=== PATIENT | male | born 1965 | race Caucasian/White ===

== ENCOUNTER 2019-04-07 16:03 | Inpatient (IN) | payer BC ==
[~2019-04-07] VITALS: Ht 203.2 cm; Wt 127.1 kg
[2019-04-07] MEDS ORDERED: IV NORMAL SALINE 1000ML BAG 1,000 ML IV SCH (17:51)
--- NOTE | 2019-04-07 18:01 | PHYS DOC ---
Past Medical History Past Medical History: A-Fib, GERD, Other Additional Past Medical Histor: avascular necrosis, heart murmur as ped (TRINITY KUMAR APRN) Past Surgical History: Tonsillectomy, Other Additional Past Surgical Histo: back, left wrist (TRINITY KUMAR APRN) Alcohol Use: Occasionally Drug Use: None (TRINITY KUMAR APRN) Attending Signature I have participated in the care of this patient and I have reviewed and agree with all pertinent clinical information above including history, exam, and recommendations. (FRENCH MCCANN MD) Adult General Chief Complaint Chief Complaint: DIZZY/LIGHT HEADED HPI HPI Patient is a 53 year old male who presents with states this morning he began having dizziness. He states he feels like the room is spinning and he states that he just doesn't feel right and he states typically all over his body. Patient CT has been up and walking. Patient has a history of A. fib and GERD. Patient is on Xeralto and Sotalol. Patient's electronics specialist today in [place] and does not see him again until May. (TRINITY KUMAR APRN) Review of Systems Review of Systems Neurologic: Dizziness and generalized tingling. Denies headache, focal weakness or sensory changes [] All other systems were reviewed and found to be within normal limits, except as documented in this note. (TRINITY KUMAR APRN) Current Medications Current Medications Current Medications Medications (Trade) Dose Ordered Sig/Lindsey Start Time Stop Time Status Last Admin Dose Admin Diltiazem HCl (Cardizem Iv Push) 10 mg 1X ONCE 04/07/19 19:15 04/07/19 19:16 DC 04/07/19 18:56 10 MG Meclizine HCl (Antivert) 25 mg 1X ONCE 04/07/19 18:45 04/07/19 18:46 DC 04/07/19 18:35 25 MG Sodium Chloride 1,000 ml @ 1,000 mls/hr Q1H 04/07/19 17:51 04/07/19 18:50 DC 04/07/19 18:36 1,000 MLS/HR (FRENCH MCCANN MD) Allergies Allergies Allergies Coded Allergies Type Severity Reaction Last Updated Verified No Known Drug Allergies 04/07/19 No (FRENCH MCCANN MD) Physical Exam Physical Exam Constitutional: Well developed, well nourished, no acute distress, non-toxic appearance. [] HENT: Normocephalic, atraumatic, bilateral external ears normal, oropharynx moist, no oral exudates, nose normal. [] Eyes: PERRLA, EOMI, conjunctiva normal, no discharge. [] Neck: Normal range of motion, no tenderness, supple, no stridor. [] Cardiovascular:Heart rate A. fib rhythm, no murmur [] Lungs & Thorax: Bilateral breath sounds clear to auscultation [] Skin: Warm, dry, no erythema, no rash. [] Extremities: No tenderness, no cyanosis, no clubbing, ROM intact, bilateral lower extremities 2+ edema. [] Neurologic: Alert and oriented X 3, normal motor function, normal sensory function, no focal deficits noted. [] Psychologic: Affect normal, judgement normal, mood normal. [] (TRINITY KUMAR APRN) Current Patient Data Vital Signs Vital Signs Date Time Temp Pulse Resp B/P (MAP) Pulse Ox O2 Delivery O2 Flow Rate FiO2 04/07/19 20:00 124 18 98 04/07/19 18:56 138/90 04/07/19 17:27 97.8 Room Air 97.8 (FRENCH MCCANN MD) Lab Values Laboratory Tests Test 04/07/19 18:14 White Blood Count 8.3 x10^3/uL (4.0-11.0) Red Blood Count 4.56 x10^6/uL (4.30-5.70) Hemoglobin 14.1 g/dL (13.0-17.5) Hematocrit 42.2 % (39.0-53.0) Mean Corpuscular Volume 93 fL (79-100) Mean Corpuscular Hemoglobin 31 pg (25-35) Mean Corpuscular Hemoglobin Concent 34 g/dL (31-37) Red Cell Distribution Width 14.7 % (11.5-14.5) H Platelet Count 231 x10^3/uL (140-400) Neutrophils (%) (Auto) 57 % (31-73) Lymphocytes (%) (Auto) 29 % (24-48) Monocytes (%) (Auto) 9 % (0-9) Eosinophils (%) (Auto) 4 % (0-3) H Basophils (%) (Auto) 1 % (0-3) Neutrophils # (Auto) 4.7 x10^3/uL (1.8-7.7) Lymphocytes # (Auto) 2.4 x10^3/uL (1.0-4.8) Monocytes # (Auto) 0.7 x10^3/uL (0.0-1.1) Eosinophils # (Auto) 0.4 x10^3/uL (0.0-0.7) Basophils # (Auto) 0.1 x10^3/uL (0.0-0.2) Prothrombin Time 13.6 SEC (11.7-14.0) Prothrombin Time INR 1.1 (0.8-1.1) Sodium Level 139 mmol/L (136-145) Potassium Level 4.2 mmol/L (3.5-5.1) Chloride Level 106 mmol/L (98-107) Carbon Dioxide Level 27 mmol/L (21-32) Anion Gap 6 (6-14) Blood Urea Nitrogen 15 mg/dL (8-26) Creatinine 0.9 mg/dL (0.7-1.3) Estimated GFR (Cockcroft-Gault) 88.3 BUN/Creatinine Ratio 17 (6-20) Glucose Level 90 mg/dL (70-99) Calcium Level 10.0 mg/dL (8.5-10.1) Total Bilirubin 0.3 mg/dL (0.2-1.0) Aspartate Amino Transferase (AST) 16 U/L (15-37) Alanine Aminotransferase (ALT) 23 U/L (16-63) Alkaline Phosphatase 94 U/L (46-116) Troponin I Quantitative 0.044 ng/mL (0.000-0.055) Total Protein 7.4 g/dL (6.4-8.2) Albumin 3.9 g/dL (3.4-5.0) Albumin/Globulin Ratio 1.1 (1.0-1.7) Laboratory Tests 04/07/19 18:14 Laboratory Tests 04/07/19 18:14 (FRENCH MCCANN MD) Lab Values Laboratory Tests Test 04/07/19 18:14 White Blood Count 8.3 x10^3/uL (4.0-11.0) Red Blood Count 4.56 x10^6/uL (4.30-5.70) Hemoglobin 14.1 g/dL (13.0-17.5) Hematocrit 42.2 % (39.0-53.0) Mean Corpuscular Volume 93 fL (79-100) Mean Corpuscular Hemoglobin 31 pg (25-35) Mean Corpuscular Hemoglobin Concent 34 g/dL (31-37) Red Cell Distribution Width 14.7 % (11.5-14.5) H Platelet Count 231 x10^3/uL (140-400) Neutrophils (%) (Auto) 57 % (31-73) Lymphocytes (%) (Auto) 29 % (24-48) Monocytes (%) (Auto) 9 % (0-9) Eosinophils (%) (Auto) 4 % (0-3) H Basophils (%) (Auto) 1 % (0-3) Neutrophils # (Auto) 4.7 x10^3/uL (1.8-7.7) Lymphocytes # (Auto) 2.4 x10^3/uL (1.0-4.8) Monocytes # (Auto) 0.7 x10^3/uL (0.0-1.1) Eosinophils # (Auto) 0.4 x10^3/uL (0.0-0.7) Basophils # (Auto) 0.1 x10^3/uL (0.0-0.2) Prothrombin Time 13.6 SEC (11.7-14.0) Prothrombin Time INR 1.1 (0.8-1.1) Sodium Level 139 mmol/L (136-145) Potassium Level 4.2 mmol/L (3.5-5.1) Chloride Level 106 mmol/L (98-107) Carbon Dioxide Level 27 mmol/L (21-32) Anion Gap 6 (6-14) Blood Urea Nitrogen 15 mg/dL (8-26) Creatinine 0.9 mg/dL (0.7-1.3) Estimated GFR (Cockcroft-Gault) 88.3 BUN/Creatinine Ratio 17 (6-20) Glucose Level 90 mg/dL (70-99) Calcium Level 10.0 mg/dL (8.5-10.1) Total Bilirubin 0.3 mg/dL (0.2-1.0) Aspartate Amino Transferase (AST) 16 U/L (15-37) Alanine Aminotransferase (ALT) 23 U/L (16-63) Alkaline Phosphatase 94 U/L (46-116) Troponin I Quantitative 0.044 ng/mL (0.000-0.055) Total Protein 7.4 g/dL (6.4-8.2) Albumin 3.9 g/dL (3.4-5.0) Albumin/Globulin Ratio 1.1 (1.0-1.7) Laboratory Tests 04/07/19 18:14 Laboratory Tests 04/07/19 18:14 (TRINITY KUMAR APRN) EKG EKG #1 Afib, no STEMI, #2 Afib RVR[] Interpretation Time: [address] Mccann, [address] Mccann (TRINITY KUMAR APRN) Radiology/Procedures Radiology/Procedures [] (TRINITY KUMAR APRN) Impressions: [address] [address] IMAGING REPORT Signed PATIENT: JAVI DALY ACCOUNT: [id number] : 1965 LOCATION: ER AGE: 53 SEX: M EXAM STATUS: REG ER ORD. PHYSICIAN: TRINITY KUMAR APRN REASON: dizziness PROCEDURE: CT HEAD WO CONTRAST CT head without contrast PQRS statement: CT scans at this facility use dose reduction including either automated exposure control, iterative reconstructions, and /or weight based radiation dosing via mA and kV modification when appropriate to reduce radiation dose to as low as reasonably achievable. HISTORY: Dizziness. TECHNIQUE: Noncontrast CT imaging of the head with coronal reconstructions was acquired. FINDINGS: No intracranial hemorrhage, mass, hydrocephalus, extra-axial fluid collections or infarction. No acute ischemic change. Imaged orbits, mastoids, paranasal sinuses and bones are unremarkable. IMPRESSION: No acute intracranial CT abnormality. Electronically signed by: Lorraine Malik MD (04/07/2019 6:34 PM) [facility] DICTATED and SIGNED BY: LORRAINE MALIK MD DATE: 04/07/[address] [address] IMAGING REPORT Signed PATIENT: JAVI DALY ACCOUNT: [id number] : 1965 LOCATION: ER AGE: 53 SEX: M EXAM STATUS: REG ER ORD. PHYSICIAN: TRINITY KUMAR APRN REASON: dizziness PROCEDURE: PORTABLE CHEST 1V AP chest x-ray HISTORY: Right chest wall mass. FINDINGS: Slight elevation of the left lateral diaphragm. Heart size normal. Mediastinal silhouette is normal. No pneumothorax, pulmonary opacities or pleural effusions. Mild bilateral apical pleural thickening. Bones are unremarkable. IMPRESSION: No acute process. Electronically signed by: Lorraine Malik MD (04/07/2019 7:22 PM) [facility] DICTATED and SIGNED BY: LORRAINE MALIK MD DATE: 04/07/191921 (TRINITY KUMAR APRN) Course & Med Decision Making Course & Med Decision Making Alert and oriented. Patient states he is able to walk but is difficult due to his dizziness. Patient states nothing makes it worse or better. Patient denies chest pain, shortness of air, focal weaknesses, focal numbness, headache, visual changes, abdominal pain, nausea, vomiting, diarrhea, dysuria. Abdomen is soft and nontender. NIH is negative. Speaks in full clear sentences. Clear to auscultation all lobes. Patient is a previous smoker that quit in 2010. Patient has 2+ lower extremity swelling but is nonpitting. No nystagmus. PERRLA. Skin pink warm and dry. CT head shows no acute findings. Patient heart rhythm is Afib and running between 120-140. I have ordered Cardizem bolus only. After Cardizem bolus patient's heart rate is fluctuating between 110 and 120. I got another EKG and urinalysis A. fib with RVR. I started a Cardizem drip. I have spoken to Dr Cordero for admission. I will consult cardiology. (TRINITY KUMAR APRN) Dragon Disclaimer Dragon Disclaimer This electronic medical record was generated, in whole or in part, using a voice recognition dictation system. (TRINITY KUMAR APRN) Departure Departure Impression: Primary Impression: Atrial fibrillation with RVR Disposition: ADMITTED INPATIENT Admitting Physician: CLAUDIA (TRINITY KUMAR APRN) Condition: STABLE Referrals: UNKNOWN PCP NAME (PCP) TRINITY KUMAR APRN Apr 07, 2019 18:01 FRENCH MCCANN MD Apr 08, 2019 18:49
[2019-04-07 18:25] LABS: BASO # 0.1 x10^3/uL (0.0-0.2); BASO % 1 % (0-3); EOS # 0.4 x10^3/uL (0.0-0.7); EOS % 4 % (0-3); HEMATOCRIT 42.2 % (39.0-53.0); HEMOGLOBIN 14.1 g/dL (13.0-17.5); LYMPH # 2.4 x10^3/uL (1.0-4.8); LYMPH % 29 % (24-48); MEAN CORPUSCULAR HEMOGLOBIN 31 pg (25-35); MEAN CORPUSCULAR HGB CONC 34 g/dL (31-37); MEAN CORPUSCULAR VOLUME 93 fL (79-100); MONO # 0.7 x10^3/uL (0.0-1.1); MONO % 9 % (0-9); NEUT # 4.7 x10^3/uL (1.8-7.7); NEUT % 57 % (31-73); PLATELET COUNT 231 x10^3/uL (140-400); RED BLOOD COUNT 4.56 x10^6/uL (4.30-5.70); RED CELL DISTRIBUTION WIDTH 14.7 % (11.5-14.5); WHITE BLOOD COUNT 8.3 x10^3/uL (4.0-11.0)
[2019-04-07 18:32] LABS: CREATININE 0.9 mg/dL (0.7-1.3); GFR 88.3; POTASSIUM 4.2 mmol/L (3.5-5.1)
[2019-04-07 18:33] LABS: PROTHROMBIN TIME PATIENT 13.6 SEC (11.7-14.0)
--- NOTE | 2019-04-07 18:37 | RAD ---
CT head without contrast PQRS statement: CT scans at this facility use dose reduction including either automated exposure control, iterative reconstructions, and /or weight based radiation dosing via mA and kV modification when appropriate to reduce radiation dose to as low as reasonably achievable. HISTORY: Dizziness. TECHNIQUE: Noncontrast CT imaging of the head with coronal reconstructions was acquired. FINDINGS: No intracranial hemorrhage, mass, hydrocephalus, extra-axial fluid collections or infarction. No acute ischemic change. Imaged orbits, mastoids, paranasal sinuses and bones are unremarkable. IMPRESSION: No acute intracranial CT abnormality. Electronically signed by: Deshawn Malik MD (04/07/2019 6:34 PM) [facility]
[2019-04-07 18:38] LABS: ALBUMIN 3.9 g/dL (3.4-5.0); ALBUMIN/GLOBULIN RATIO 1.1 (1.0-1.7); TOTAL BILIRUBIN 0.3 mg/dL (0.2-1.0); TOTAL PROTEIN 7.4 g/dL (6.4-8.2)
[2019-04-07] MEDS ORDERED: MECLIZINE HCL 12.5 MG TABLET. PO ONE (18:45)
[2019-04-07] MEDS ORDERED: dilTIAZem IV PUSH 25 MG/5 ML VIAL IVP ONE (19:15)
--- NOTE | 2019-04-07 19:25 | RAD ---
AP chest x-ray HISTORY: Right chest wall mass. FINDINGS: Slight elevation of the left lateral diaphragm. Heart size normal. Mediastinal silhouette is normal. No pneumothorax, pulmonary opacities or pleural effusions. Mild bilateral apical pleural thickening. Bones are unremarkable. IMPRESSION: No acute process. Electronically signed by: Deshawn Malik MD (04/07/2019 7:22 PM) [facility]
[2019-04-07] MEDS ORDERED: ONDANSETRON PF 4 MG/2 ML VIAL. IV PRN (20:30)
[2019-04-07] MEDS ORDERED: ACETAMINOPHEN 325 MG TABLET. PO PRN (20:30)
[2019-04-07] MEDS ORDERED: fentaNYL PF VIAL 100 MCG/2 ML VIAL IV PRN (20:30)
[2019-04-07] MEDS ORDERED: dilTIAZem INJ 125 MG in IV DEXTROSE 5% 100ML 100 ML IV ONE (20:30)
[2019-04-07 22:15] VITALS: BP 108/73
[2019-04-07 22:45] VITALS: BP 99/73
[2019-04-07 23:00] VITALS: BP 105/61
[2019-04-07 23:15] VITALS: BP 94/59
[2019-04-07 23:30] VITALS: BP 82/66
[2019-04-07 23:45] VITALS: BP 100/58
[2019-04-08] VITALS (14 sets, daily range): BP systolic 91–118; BP diastolic 45–89
[2019-04-08] MEDS ORDERED: SOTA80TA48 PO (00:26)
[2019-04-08] MEDS ORDERED: APIX5TAB PO (00:26)
[2019-04-08 06:36] LABS: CHOLESTEROL/HDL RATIO 4.6
--- NOTE | 2019-04-08 06:48 | EKG ---
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
--- NOTE | 2019-04-08 06:49 | EKG ---
[facility] [address] [place] [address] Test Date: 2019-04-07 Test Time: 18:33:58 Pat Name: JAVI DALY Department: Room: 210 1 Gender: M Office Director: : 1965 Requested By: TRINITY KUMAR Order Number: [id number] Reading MD: Atul Li MD Measurements Intervals [place] Rate: 121 P: [place]: QRS: 50 QRSD: 100 T: 31 QT: 334 QTc: 477 Interpretive Statements ATRIAL FIBRILLATION WITH CONTROLLED VENTRICULAR RESPONSE Electronically Signed On 04-18-2019 9:43:04 CDT by Atul Li MD
--- NOTE | 2019-04-08 10:00 | EKG ---
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
--- NOTE | 2019-04-08 10:06 | PDOC1 ---
History and Physical Date of Admission Date of Admission DATE: 04/08/19 TIME: 10:06 History of Present Illness History of Present Illness Mr. Jara, is a 53 year old male admit from ER with acute dizziness, weakness. . IN the ER, he felt like the room was spinning and he states that he just doesn't feel right and he states typically all over his body. . Patient has a history of A. fib and GERD. Patient is on Xeralto and Sotalol. Patient's trust advisor today in [place] - never seen outpatient, had been admitted, was cardioverted, meds started within the past month for acute dyspnea, cardiac arrythmia he lives [place] away, would like to est. care here. he works in [employer] at [employer] Past Medical History Past Medical History no meds one month ago Cardiovascular: AFIB Pulmonary: No pertinent hx GI: No pertinent hx Heme/Onc: No pertinent hx Psych: No pertinent hx Family History Family History: Heart Disease Social History Smoke: No ALCOHOL: none Drugs: None Current Problem List Problem List Problems Medical Problems: (1) Atrial fibrillation with RVR Status: Acute Current Medications Current Medications Current Medications Meclizine HCl (Antivert) 25 mg 1X ONCE PO Last administered on 04/07/19at 18:35; Start 04/07/19 at 18:45; Stop 04/07/19 at 18:46; Status DC Sodium Chloride 1,000 ml @ 1,000 mls/hr Q1H IV Last administered on 04/07/19at 18:36; Start 04/07/19 at 17:51; Stop 04/07/19 at 18:50; Status DC Diltiazem HCl (Cardizem Iv Push) 10 mg 1X ONCE IVP Last administered on 03/22 01/07at 18:56; Start 04/07/19 at 19:15; Stop 04/07/19 at 19:16; Status DC Diltiazem HCl 125 mg/Dextrose 125 ml @ 5 mls/hr 1X ONCE IV Last administered on 04/07/19at 20:28; Start 04/07/19 at 20:30; Stop 04/08/19 at 21:29 Ondansetron HCl (Zofran) 4 mg PRN Q8HRS PRN IV NAUSEA/VOMITING; Start 04/07/19 at 20:30; Stop 04/08/19 at 20:29 Fentanyl Citrate (Fentanyl 2ml Vial) 50 mcg PRN Q1HR PRN IV PAIN; Start 04/07/19 at 20:30; Stop 04/08/19 at 20:29 Acetaminophen (Tylenol) 650 mg PRN Q4HRS PRN PO FEVER; Start 04/07/19 at 20:30; Stop 04/08/19 at 20:29 Active Scripts Active Reported Sotalol (Sotalol Hcl) 80 Mg Tablet 80 Mg PO BID Eliquis (Apixaban) 5 Mg Tablet 5 Mg PO BID Allergies Allergies: Coded Allergies: No Known Drug Allergies (Unverified , 04/07/19) ROS General: YES: Fatigue, Malaise PSYCHOLOGICAL ROS: YES: Sleep disturbances Eyes: No Blurry vision, No Decreased vision, No Double vision, No Dry eyes, No Excessive tearing, No Eye Pain, No Itchy Eyes, No Loss of vision, No Photophobia, No Scotomata, No Uses contacts, No Uses glasses, No Other HEENT: No: Heacaches, Visual Changes, Hearing change, Nasal congestion, Nasal discharge, Oral lesions, Sinus pain, Sore Throat, Epistaxis, Sneezing, Snoring, Tinnitus, Vertigo, Vocal changes, Other Respiratory: YES: SOB with excertion; No: Cough, Hemoptysis, Orthopnea, Pleuritic Pain, Shortness of breath, Sputum Changes, Stridor, Tachypnea, Wheezing, Other Cardiovascular: No Chest Pain, No Palpitations, No Orthopnea, No Paroxysmal Noc. Dyspnea, No Edema, No Lt Headedness, No Other Gastrointestinal: No Nausea, No Vomiting, No Abdominal Pain, No Diarrhea, No Co nstipation, No Melena, No Hematochezia, No Other Genitourinary: No Dysuria, No Frequency, No Incontinence, No Hematuria, No Retention, No Discharge, No Urgency, No Pain, No Flank Pain, No Other, No , No , No , No , No , No , No Musculoskeletal: No Gait Disturbance, No Joint Pain, No Joint Stiffness, No Joint Swelling, No Muscle Pain, No Muscular Weakness, No Pain In:, No Swelling In:, No Other Neurological: Yes Dizziness; No Behavorial Changes, No Bowel/Bladder ControlChng, No Confusion, No Gait Disturbance, No Headaches, No Impaired Coord/balance, No Memory Loss, No Numbness/Tingling, No Seizures, No Speech Problems, No Tremors, No Visual Changes, No Weakness, No Other Skin: No Dry Skin, No Eczema, No Hair Changes, No Lumps, No Mole Changes, No Mottling, No Nail Changes, No Pruritus, No Rash, No Skin Lesion Changes, No Other, No Acne Physical Exam General: Alert, Cooperative, No acute distress HEENT: Atraumatic, PERRLA Heart: S1S2, no gallops, no murmurs Abdomen: Normal bowel sounds, Soft Rectal Exam: not examined Extremities: No clubbing, No edema Skin: No breakdown Neuro: Normal speech, Sensation intact, Cranial nerves 3-12 NL Psych/Mental Status: Mental status NL, Mood NL Vitals Vitals Vital Signs Date Time Temp Pulse Resp B/P (MAP) Pulse Ox O2 Delivery O2 Flow Rate FiO2 04/08/19 07:00 98.8 89 18 101/67 (78) 97 Room Air 98.8 Labs Labs Laboratory Tests Test 04/07/19 18:14 04/08/19 01:45 04/08/19 04:30 White Blood Count 8.3 x10^3/uL (4.0-11.0) Red Blood Count 4.56 x10^6/uL (4.30-5.70) Hemoglobin 14.1 g/dL (13.0-17.5) Hematocrit 42.2 % (39.0-53.0) Mean Corpuscular Volume 93 fL (79-100) Mean Corpuscular Hemoglobin 31 pg (25-35) Mean Corpuscular Hemoglobin Concent 34 g/dL (31-37) Red Cell Distribution Width 14.7 % (11.5-14.5) Platelet Count 231 x10^3/uL (140-400) Neutrophils (%) (Auto) 57 % (31-73) Lymphocytes (%) (Auto) 29 % (24-48) Monocytes (%) (Auto) 9 % (0-9) Eosinophils (%) (Auto) 4 % (0-3) Basophils (%) (Auto) 1 % (0-3) Neutrophils # (Auto) 4.7 x10^3/uL (1.8-7.7) Lymphocytes # (Auto) 2.4 x10^3/uL (1.0-4.8) Monocytes # (Auto) 0.7 x10^3/uL (0.0-1.1) Eosinophils # (Auto) 0.4 x10^3/uL (0.0-0.7) Basophils # (Auto) 0.1 x10^3/uL (0.0-0.2) Prothrombin Time 13.6 SEC (11.7-14.0) Prothromb Time International Ratio 1.1 (0.8-1.1) Sodium Level 139 mmol/L (136-145) Potassium Level 4.2 mmol/L (3.5-5.1) Chloride Level 106 mmol/L (98-107) Carbon Dioxide Level 27 mmol/L (21-32) Anion Gap 6 (6-14) Blood Urea Nitrogen 15 mg/dL (8-26) Creatinine 0.9 mg/dL (0.7-1.3) Estimated GFR (Cockcroft-Gault) 88.3 BUN/Creatinine Ratio 17 (6-20) Glucose Level 90 mg/dL (70-99) Calcium Level 10.0 mg/dL (8.5-10.1) Total Bilirubin 0.3 mg/dL (0.2-1.0) Aspartate Amino Transf (AST/SGOT) 16 U/L (15-37) Alanine Aminotransferase (ALT/SGPT) 23 U/L (16-63) Alkaline Phosphatase 94 U/L (46-116) Troponin I Quantitative 0.044 ng/mL (0.000-0.055) 0.055 ng/mL (0.000-0.055) 0.034 ng/mL (0.000-0.055) Total Protein 7.4 g/dL (6.4-8.2) Albumin 3.9 g/dL (3.4-5.0) Albumin/Globulin Ratio 1.1 (1.0-1.7) Triglycerides Level 143 mg/dL (0-150) Cholesterol Level 155 mg/dL (0-200) LDL Cholesterol, Calculated 92 mg/dL (0-100) VLDL Cholesterol, Calculated 29 mg/dL (0-40) Non-HDL Cholesterol Calculated 121 mg/dL (0-129) HDL Cholesterol 34 mg/dL (40-60) Cholesterol/HDL Ratio 4.6 Thyroid Stimulating Hormone (TSH) 3.140 uIU/mL (0.358-3.74) Laboratory Tests Test 04/07/19 18:14 04/08/19 01:45 04/08/19 04:30 White Blood Count 8.3 x10^3/uL (4.0-11.0) Red Blood Count 4.56 x10^6/uL (4.30-5.70) Hemoglobin 14.1 g/dL (13.0-17.5) Hematocrit 42.2 % (39.0-53.0) Mean Corpuscular Volume 93 fL (79-100) Mean Corpuscular Hemoglobin 31 pg (25-35) Mean Corpuscular Hemoglobin Concent 34 g/dL (31-37) Red Cell Distribution Width 14.7 % (11.5-14.5) Platelet Count 231 x10^3/uL (140-400) Neutrophils (%) (Auto) 57 % (31-73) Lymphocytes (%) (Auto) 29 % (24-48) Monocytes (%) (Auto) 9 % (0-9) Eosinophils (%) (Auto) 4 % (0-3) Basophils (%) (Auto) 1 % (0-3) Neutrophils # (Auto) 4.7 x10^3/uL (1.8-7.7) Lymphocytes # (Auto) 2.4 x10^3/uL (1.0-4.8) Monocytes # (Auto) 0.7 x10^3/uL (0.0-1.1) Eosinophils # (Auto) 0.4 x10^3/uL (0.0-0.7) Basophils # (Auto) 0.1 x10^3/uL (0.0-0.2) Prothrombin Time 13.6 SEC (11.7-14.0) Prothromb Time International Ratio 1.1 (0.8-1.1) Sodium Level 139 mmol/L (136-145) Potassium Level 4.2 mmol/L (3.5-5.1) Chloride Level 106 mmol/L (98-107) Carbon Dioxide Level 27 mmol/L (21-32) Anion Gap 6 (6-14) Blood Urea Nitrogen 15 mg/dL (8-26) Creatinine 0.9 mg/dL (0.7-1.3) Estimated GFR (Cockcroft-Gault) 88.3 BUN/Creatinine Ratio 17 (6-20) Glucose Level 90 mg/dL (70-99) Calcium Level 10.0 mg/dL (8.5-10.1) Total Bilirubin 0.3 mg/dL (0.2-1.0) Aspartate Amino Transf (AST/SGOT) 16 U/L (15-37) Alanine Aminotransferase (ALT/SGPT) 23 U/L (16-63) Alkaline Phosphatase 94 U/L (46-116) Troponin I Quantitative 0.044 ng/mL (0.000-0.055) 0.055 ng/mL (0.000-0.055) 0.034 ng/mL (0.000-0.055) Total Protein 7.4 g/dL (6.4-8.2) Albumin 3.9 g/dL (3.4-5.0) Albumin/Globulin Ratio 1.1 (1.0-1.7) Triglycerides Level 143 mg/dL (0-150) Cholesterol Level 155 mg/dL (0-200) LDL Cholesterol, Calculated 92 mg/dL (0-100) VLDL Cholesterol, Calculated 29 mg/dL (0-40) Non-HDL Cholesterol Calculated 121 mg/dL (0-129) HDL Cholesterol 34 mg/dL (40-60) Cholesterol/HDL Ratio 4.6 Thyroid Stimulating Hormone (TSH) 3.140 uIU/mL (0.358-3.74) VTE Prophylaxis Ordered VTE Prophylaxis Devices: No VTE Pharmacological Prophylaxi: Yes Assessment/Plan Assessment/Plan atrial fib, acute diastolic CHF rapid ventricular response, prior DC cardioversion within the month x3, on sotalol, consider failure, discussed with CV team, change to amio, consider DC cardioversion again discussed pt and at length, would benefit from EP consult, outpatient, should f/u SHARELNE FERGUSON MD Apr 08, 2019 10:06
[2019-04-08] MEDS ORDERED: AMIODARONE 150 MG in IV DEXTROSE 5% 100ML 100 ML IV ONE (10:45)
[2019-04-08] MEDS ORDERED: AMIODARONE 900 MG in IV DEXTROSE 5% 500 ML IV PRN (10:45)
--- NOTE | 2019-04-08 10:47 | PDOC2 ---
SALLIE GARCIA BOREMATIC MACHINE OPERATOR 04/08/19 1047: CARDIAC CONSULT DATE OF CONSULT Date of Consult DATE: 04/08/19 TIME: 10:12 REASON FOR CONSULT Reason for Consult: AFIB RVR REFERRING PHYSICIAN Referring Physician: Preet SOURCE Source: Chart review, Patient HISTORY OF PRESENT ILLNESS HISTORY OF PRESENT ILLNESS This is a pleasant 53 yo male admitted for complains of lightheadedness. Reports that he has been tired lately but still able to do his work and no exertional CP nor SOA. His lightheadedness started yesterday and it was intermittent but persistent so he went ahead and came to ED. No palpitations. Upon admission he was noted with AFIB RVR despite being on sotalol. He was cardioverted at [facility] 1-2 months ago. No fever or chills. No past CAD, VTE. PAST MEDICAL HISTORY Cardiovascular: AFIB Pulmonary: Other (VLAD) CENTRAL NERVOUS SYSTEM: Other (No pertinent hstory) GI: GERD Heme/Onc: No pertinent hx Hepatobiliary: No pertinent hx Psych: No pertinent hx Musculoskeletal: low back pain, Osteoarthritis Rheumatologic: No pertinent hx Infectious disease: No pertinent hx ENT: No pertinent hx Renal/: No pertinent hx Endocrine: No pertinent hx Dermatology: No pertinent hx FAMILY HISTORY Family History: Heart Disease (mother) SOCIAL HISTORY Smoke: Quit ALCOHOL: none Drugs: None Lives: with Family CURRENT MEDICATIONS CURRENT MEDICATIONS Current Medications Medications (Trade) Dose Ordered Sig/Lindsey Route PRN Reason Start Time Stop Time Status Last Admin Dose Admin Meclizine HCl (Antivert) 25 mg 1X ONCE PO 04/07/19 18:45 04/07/19 18:46 DC 04/07/19 18:35 Sodium Chloride 1,000 ml @ 1,000 mls/hr Q1H IV 04/07/19 17:51 04/07/19 18:50 DC 04/07/19 18:36 Diltiazem HCl (Cardizem Iv Push) 10 mg 1X ONCE IVP 04/07/19 19:15 04/07/19 19:16 DC 04/07/19 18:56 Diltiazem HCl 125 mg/Dextrose 125 ml @ 5 mls/hr 1X ONCE IV 04/07/19 20:30 04/08/19 21:29 04/07/19 20:28 ALLERGIES ALLERGIES: Coded Allergies: No Known Drug Allergies (Unverified , 04/07/19) ROS Review of System 14 point ROS evaluated with pertinent positives noted per HPI PHYSICAL EXAM General: Alert, Oriented X3, Cooperative, No acute distress HEENT: Atraumatic, Mucous membr. moist/pink Lungs: Clear to auscultation, Normal air movement Heart: Other (AFIB RVR) Abdomen: Soft, No tenderness Extremities: No cyanosis, No edema Skin: No breakdown, No significant lesion Neuro: Normal speech, Sensation intact Psych/Mental Status: Mental status NL, Mood NL MUSCULOSKELETAL: Osteoarthritic changes both hands VITALS/I&O VITALS/I&O: Vital Signs Date Time Temp Pulse Resp B/P (MAP) Pulse Ox O2 Delivery O2 Flow Rate FiO2 04/08/19 07:00 98.8 89 18 101/67 (78) 97 Room Air 98.8 I & O 04/07/19 04/07/19 04/08/19 15:00 23:00 07:00 Intake Total 1000 ml 567 ml Output Total 1950 ml Balance 1000 ml -1383 ml LABS Lab: Laboratory Tests Test 04/07/19 18:14 04/08/19 01:45 04/08/19 04:30 White Blood Count 8.3 x10^3/uL (4.0-11.0) Red Blood Count 4.56 x10^6/uL (4.30-5.70) Hemoglobin 14.1 g/dL (13.0-17.5) Hematocrit 42.2 % (39.0-53.0) Mean Corpuscular Volume 93 fL (79-100) Mean Corpuscular Hemoglobin 31 pg (25-35) Mean Corpuscular Hemoglobin Concent 34 g/dL (31-37) Red Cell Distribution Width 14.7 % (11.5-14.5) H Platelet Count 231 x10^3/uL (140-400) Neutrophils (%) (Auto) 57 % (31-73) Lymphocytes (%) (Auto) 29 % (24-48) Monocytes (%) (Auto) 9 % (0-9) Eosinophils (%) (Auto) 4 % (0-3) H Basophils (%) (Auto) 1 % (0-3) Neutrophils # (Auto) 4.7 x10^3/uL (1.8-7.7) Lymphocytes # (Auto) 2.4 x10^3/uL (1.0-4.8) Monocytes # (Auto) 0.7 x10^3/uL (0.0-1.1) Eosinophils # (Auto) 0.4 x10^3/uL (0.0-0.7) Basophils # (Auto) 0.1 x10^3/uL (0.0-0.2) Prothrombin Time 13.6 SEC (11.7-14.0) Prothrombin Time INR 1.1 (0.8-1.1) Sodium Level 139 mmol/L (136-145) Potassium Level 4.2 mmol/L (3.5-5.1) Chloride Level 106 mmol/L (98-107) Carbon Dioxide Level 27 mmol/L (21-32) Anion Gap 6 (6-14) Blood Urea Nitrogen 15 mg/dL (8-26) Creatinine 0.9 mg/dL (0.7-1.3) Estimated GFR (Cockcroft-Gault) 88.3 BUN/Creatinine Ratio 17 (6-20) Glucose Level 90 mg/dL (70-99) Calcium Level 10.0 mg/dL (8.5-10.1) Total Bilirubin 0.3 mg/dL (0.2-1.0) Aspartate Amino Transferase (AST) 16 U/L (15-37) Alanine Aminotransferase (ALT) 23 U/L (16-63) Alkaline Phosphatase 94 U/L (46-116) Troponin I Quantitative 0.044 ng/mL (0.000-0.055) 0.055 ng/mL (0.000-0.055) 0.034 ng/mL (0.000-0.055) Total Protein 7.4 g/dL (6.4-8.2) Albumin 3.9 g/dL (3.4-5.0) Albumin/Globulin Ratio 1.1 (1.0-1.7) Triglycerides Level 143 mg/dL (0-150) Cholesterol Level 155 mg/dL (0-200) LDL Cholesterol, Calculated 92 mg/dL (0-100) VLDL Cholesterol, Calculated 29 mg/dL (0-40) Non-HDL Cholesterol Calculated 121 mg/dL (0-129) HDL Cholesterol 34 mg/dL (40-60) L Cholesterol/HDL Ratio 4.6 Thyroid Stimulating Hormone (TSH) 3.140 uIU/mL (0.358-3.74) Laboratory Tests 04/07/19 18:14 Laboratory Tests 04/07/19 18:14 ASSESSMENT/PLAN ASSESSMENT/PLAN 1. AFIB RVR: paroxysmal by hx. MARNIE/CVN 1-2 months ago at [facility]. 2. VLAD: CPAP compliant 3. Obesity Recommendations 1. Will restart home eliquis for stroke prevention. Pt did eat breakfast. TTE today 2. Likely failed sotalol therapy. QTc 480. Start on amiodarone protocol then transition to PO tomorrow. 3. Will plan for outpt cardioversion 4. Will start on low dose metoprolol if BP trend is adequate. DC cardizem 5. Anticipate DC tomorrow. 6. He will need outpt stress test for further risk stratification. CHEYENNE BRENNAN MD 04/08/19 1528: CARDIAC CONSULT ASSESSMENT/PLAN ASSESSMENT/PLAN Patient seen and examined. Agree with SLICING MACHINE FEEDER's assessment and plan. Patient with history of PAF s/p CVn is admitted with AF RVR Agree with changing antiarrhythmic therapy to amiodarone since he failed sotalol therapy Continue eliquis for stroke prophylaxis and plan outpatient cardioversion in 2 weeks 2D echo showed EF 35-40%, compensated Plan ischemic evaluation as outpatient Thank you for your consultation SALLIE GARCIA APRN Apr 08, 2019 10:47 CHEYENNE BRENNAN MD Apr 08, 2019 15:28
[2019-04-08] MEDS ORDERED: SOTALOL 80 MG TABLET. PO SCH (11:00)
[2019-04-08] MEDS ORDERED: METOPROLOL TART IMMED RELEASE 25 MG TABLET. PO SCH ×2 (11:00→21:00)
--- NOTE | 2019-04-08 11:23 | NUR ---
SS following for discharge planning. SS reviewed pt chart. Pt is from home with spouse and is currently on room air. SS will continue to follow for discharge planning.
[2019-04-08] MEDS: APIXABAN 5 MG TABLET. PO SCH ×2 (11:32→20:54)
--- NOTE | 2019-04-08 13:52 | EKG ---
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
--- NOTE | 2019-04-08 14:12 | CARD ---
MR#: [id number] Date of Study: 04/08/2019 Ordering Physician: SALLIE GARCIA, Referring Physician: SALLIE GARCIA, Tech: Marain Badillo APPROVED REPORT EXAM: Two-dimensional and M-mode echocardiogram with Doppler and color Doppler. Other Information Quality : GoodHR: 115bpm INDICATION Atrial Fibrillation 2D DIMENSIONS RVDd4.4 (2.9-3.5cm)Left Atrium(2D)5.2 (1.6-4.0cm) IVSd1.3 (0.7-1.1cm)LVDd5.6 (3.9-5.9cm) LVOT Diameter2.1 (1.8-2.4cm)PWd1.2 (0.7-1.1cm) LVDs4.7 (2.5-4.0cm)FS (%) 17.3 % SV55.7 mlLVEF(%)35.6 (>50%) Aortic Valve AoV Peak Rakan.122.3cm/sAoV VTI23.3cm AO Peak GR.6.0mmHgLVOT VTI 11.25cm AO Mean GR.4mmHg Mitral Valve MV E Uxebqhsi60.2cm/sMV E Peak Gr.75mmHg TDI Lateral E' P. V10.62cm/sMedial E' P. V9.01cm/s E/Lateral E'6.4E/Medial E'7.6 Tricuspid Valve TR P. Tcvvnjtg814za/sRAP GLTILUED2hmNt TR Peak Gr.71daLjTXGD03ueHb Pulmonary Vein S1 Gewviqgw20.1cm/sS2 Ddgwcjgk65.34cm/s D2 Bbcwlgbv33.3cm/sPVa olyhqvem201fhrt LEFT VENTRICLE The left ventricle is normal size. There is mild to moderate concentric left ventricular hypertrophy. The systolic function is moderately impaired. The Ejection Fraction is 35-40%. There is global hypok inesis of the left ventricle. Tissue Doppler imaging reveals moderate left ventricular diastolic dysf unction. RIGHT VENTRICLE The right ventricle is mildly dilated. There is normal right ventricular wall thickness. RV Systolic function is borderline reduced. ATRIA The left atrium is mildly dilated. The right atrium is moderately dilated. The interatrial septum is intact with no evidence for an atrial septal defect or patent foramen ovale as noted on 2-D or Dopple r imaging. AORTIC VALVE The aortic valve is thickened but opens well. Doppler and Color Flow revealed no significant aortic r egurgitation. There is no significant aortic valvular stenosis. MITRAL VALVE The mitral valve is normal in structure and function. There is no evidence of mitral valve prolapse. There is no mitral valve stenosis. Doppler and Color-flow revealed trace mitral regurgitation. TRICUSPID VALVE The tricuspid valve is normal in structure and function. Doppler and Color Flow revealed trace tricus pid regurgitation with an estimated PAP of 33 mmHg. There is no tricuspid valve prolapse or vegetatio n. There is no tricuspid valve stenosis. PULMONIC VALVE The pulmonic valve is not well visualized. Doppler and Color Flow revealed trace pulmonic valvular re gurgitation. There is no pulmonic valvular stenosis. GREAT VESSELS The aortic root is normal in size. The IVC was not visualized. PERICARDIAL EFFUSION There is no evidence of significant pericardial effusion. Critical Notification Critical Value: No <Conclusion> The systolic function is moderately impaired. The Ejection Fraction is 35-40%. There is global hypokinesis of the left ventricle. Signed by : Atul Li, Electronically Approved : 04/08/2019 14:12:25
[2019-04-08 14:23] LABS: BILIRUBIN,URINE NEGATIVE (NEG); CLARITY,URINE CLEAR; COLOR,URINE YELLOW; NITRITE,URINE NEGATIVE (NEG); PROTEIN,URINE NEGATIVE (NEG-TRACE); UROBILINOGEN,URINE 0.2 mg/dL (0.2 mg/dL)
[2019-04-08 14:42] LABS: BACTERIA,URINE 0 /HPF (0-FEW); RBC,URINE 0 /HPF (0-2); SQUAMOUS EPITHELIAL CELL,UR FEW /LPF; WBC,URINE 0 /HPF (0-4)
[2019-04-08 14:55] LABS: BARBITURATES NEG (NEG); BENZODIAZEPINES NEG (NEG); CANNABINOIDS NEG (NEG); COCAINE NEG (NEG); METHADONE NEG (NEG); OPIATES NEG (NEG); PHENCYCLIDINE NEG (NEG)
[2019-04-08 15:12] LABS: AMPHETAMINE/METHAMPHETAMINE NEG (NEG)
[2019-04-09 03:30] VITALS: BP 111/72
[2019-04-09 07:00] VITALS: BP 118/81
[2019-04-09] MEDS ORDERED: DIGOXIN IV 500 MCG/2 ML AMPUL. IV ONE (08:15)
[2019-04-09] MEDS: APIXABAN 5 MG TABLET. PO SCH ×2 (08:16→20:28)
[2019-04-09] MEDS: METOPROLOL TART IMMED RELEASE 25 MG TABLET. PO SCH ×4 (08:16→23:40)
[2019-04-09] MEDS: AMIODARONE HCL 200 MG TABLET. PO SCH ×2 (08:17→20:28)
--- NOTE | 2019-04-09 08:19 | PDOC ---
CARDIOLOGY PROGRESS NOTE SUBJECTIVE: Still has significant tachy with activity. No chest pain. Denies dizziness. OBJECTIVE: Vital Signs/I&O: Vital Signs Date Time Temp Pulse Resp B/P (MAP) Pulse Ox O2 Delivery O2 Flow Rate FiO2 04/09/19 07:00 97.7 107 18 118/81 (93) 94 Room Air 97.7 I & O 04/08/19 04/08/19 04/09/19 15:00 23:00 07:00 Intake Total 600 ml Output Total 1000 ml 650 ml Balance -400 ml -650 ml Objective: a/o x 3. NAD irr irr. no m/r/g no edema. CURRENT MEDICATIONS: Current Medications Medications (Trade) Dose Ordered Sig/Lindsey Route PRN Reason Start Time Stop Time Status Last Admin Dose Admin Apixaban (Eliquis) 5 mg BID PO 04/08/19 11:00 04/08/19 20:54 Amiodarone HCl 150 mg/Dextrose 103 ml @ 600 mls/hr 1X ONCE IV 04/08/19 10:45 04/08/19 11:08 DC 04/08/19 11:20 Metoprolol Tartrate (Lopressor) 12.5 mg BID PO 04/08/19 21:00 04/09/19 07:57 DC 04/08/19 20:54 DIAGNOSTIC TESTING: labs reviewed. tele reviewed ASSESSMENT: 1. Afib with RVR 2. Presumed tachy mediated CMP PLAN: 1. He has failed three cardioversions. Will likely be a poor candidate for repeat cardioversion but can attempt in 2 weeks as last resort, probably needs afib ablation. Refer on an outpt basis. 2. Increase metoprolol to 25mg p.o q 6 hours 3. Digoxin 0.5mg IVP now. 4. Continue anticoagulation. Supportive care. Not yet ready for DC due to afib with RVR. Will follow along. DUC MELISSA MD Apr 09, 2019 08:19
[2019-04-09] MEDS: ANTI-COAG MONITOR BY PHARMACY. MC PRN (08:48)
[2019-04-09] MEDS ORDERED: POLYETHYLENE GLYCOL 3350 17 GM PACKET. PO PRN (10:45)
[2019-04-09 11:00] VITALS: BP 105/78
--- NOTE | 2019-04-09 11:45 | PDOC ---
PROGRESS NOTES Chief Complaint Chief Complaint atrial fib, acute diastolic CHF rapid ventricular response, resolved on amio gtt History of Present Illness History of Present Illness will cont current, amio gtt, may be able to DC in am Vitals Vitals Vital Signs Date Time Temp Pulse Resp B/P (MAP) Pulse Ox O2 Delivery O2 Flow Rate FiO2 04/09/19 08:21 132 04/09/19 08:17 118/81 04/09/19 08:00 Room Air 04/09/19 07:00 97.7 18 94 97.7 Physical Exam General: Alert, Cooperative, No acute distress Heart: Other (AFIB RVR) Abdomen: Normal bowel sounds, Soft Extremities: No clubbing, No edema Skin: No breakdown Labs LABS Laboratory Tests Test 04/08/19 14:01 Urine Collection Type Unknown Urine Color Yellow Urine Clarity Clear Urine pH 7.0 Urine Specific [place] 1.010 Urine Protein Negative mg/dL (NEG-TRACE) Urine Glucose (UA) Negative mg/dL (NEG) Urine Ketones (Stick) Negative mg/dL (NEG) Urine Blood Negative (NEG) Urine Nitrite Negative (NEG) Urine Bilirubin Negative (NEG) Urine Urobilinogen Dipstick 0.2 mg/dL (0.2 mg/dL) Urine Leukocyte Esterase Negative (NEG) Urine RBC 0 /HPF (0-2) Urine WBC 0 /HPF (0-4) Urine Squamous Epithelial Cells Few /LPF Urine Bacteria 0 /HPF (0-FEW) Urine Opiates Screen Neg (NEG) Urine Methadone Screen Neg (NEG) Urine Barbiturates Neg (NEG) Urine Phencyclidine Screen Neg (NEG) Urine Amphetamine/Methamphetamine Neg (NEG) Urine Benzodiazepines Screen Neg (NEG) Urine Cocaine Screen Neg (NEG) Urine Cannabinoids Screen Neg (NEG) Urine Ethyl Alcohol Neg (NEG) Assessment and Plan Assessmemt and Plan Problems Medical Problems: (1) Atrial fibrillation with RVR Status: Acute Comment Review of Relevant I have reviewed the following items rell (where applicable) has been applied. Labs Laboratory Tests Test 04/07/19 18:14 04/08/19 01:45 04/08/19 04:30 04/08/19 14:01 White Blood Count 8.3 x10^3/uL (4.0-11.0) Red Blood Count 4.56 x10^6/uL (4.30-5.70) Hemoglobin 14.1 g/dL (13.0-17.5) Hematocrit 42.2 % (39.0-53.0) Mean Corpuscular Volume 93 fL (79-100) Mean Corpuscular Hemoglobin 31 pg (25-35) Mean Corpuscular Hemoglobin Concent 34 g/dL (31-37) Red Cell Distribution Width 14.7 % (11.5-14.5) Platelet Count 231 x10^3/uL (140-400) Neutrophils (%) (Auto) 57 % (31-73) Lymphocytes (%) (Auto) 29 % (24-48) Monocytes (%) (Auto) 9 % (0-9) Eosinophils (%) (Auto) 4 % (0-3) Basophils (%) (Auto) 1 % (0-3) Neutrophils # (Auto) 4.7 x10^3/uL (1.8-7.7) Lymphocytes # (Auto) 2.4 x10^3/uL (1.0-4.8) Monocytes # (Auto) 0.7 x10^3/uL (0.0-1.1) Eosinophils # (Auto) 0.4 x10^3/uL (0.0-0.7) Basophils # (Auto) 0.1 x10^3/uL (0.0-0.2) Prothrombin Time 13.6 SEC (11.7-14.0) Prothromb Time International Ratio 1.1 (0.8-1.1) Sodium Level 139 mmol/L (136-145) Potassium Level 4.2 mmol/L (3.5-5.1) Chloride Level 106 mmol/L (98-107) Carbon Dioxide Level 27 mmol/L (21-32) Anion Gap 6 (6-14) Blood Urea Nitrogen 15 mg/dL (8-26) Creatinine 0.9 mg/dL (0.7-1.3) Estimated GFR (Cockcroft-Gault) 88.3 BUN/Creatinine Ratio 17 (6-20) Glucose Level 90 mg/dL (70-99) Calcium Level 10.0 mg/dL (8.5-10.1) Total Bilirubin 0.3 mg/dL (0.2-1.0) Aspartate Amino Transf (AST/SGOT) 16 U/L (15-37) Alanine Aminotransferase (ALT/SGPT) 23 U/L (16-63) Alkaline Phosphatase 94 U/L (46-116) Troponin I Quantitative 0.044 ng/mL (0.000-0.055) 0.055 ng/mL (0.000-0.055) 0.034 ng/mL (0.000-0.055) Total Protein 7.4 g/dL (6.4-8.2) Albumin 3.9 g/dL (3.4-5.0) Albumin/Globulin Ratio 1.1 (1.0-1.7) Triglycerides Level 143 mg/dL (0-150) Cholesterol Level 155 mg/dL (0-200) LDL Cholesterol, Calculated 92 mg/dL (0-100) VLDL Cholesterol, Calculated 29 mg/dL (0-40) Non-HDL Cholesterol Calculated 121 mg/dL (0-129) HDL Cholesterol 34 mg/dL (40-60) Cholesterol/HDL Ratio 4.6 Thyroid Stimulating Hormone (TSH) 3.140 uIU/mL (0.358-3.74) Urine Collection Type Unknown Urine Color Yellow Urine Clarity Clear Urine pH 7.0 Urine Specific [place] 1.010 Urine Protein Negative mg/dL (NEG-TRACE) Urine Glucose (UA) Negative mg/dL (NEG) Urine Ketones (Stick) Negative mg/dL (NEG) Urine Blood Negative (NEG) Urine Nitrite Negative (NEG) Urine Bilirubin Negative (NEG) Urine Urobilinogen Dipstick 0.2 mg/dL (0.2 mg/dL) Urine Leukocyte Esterase Negative (NEG) Urine RBC 0 /HPF (0-2) Urine WBC 0 /HPF (0-4) Urine Squamous Epithelial Cells Few /LPF Urine Bacteria 0 /HPF (0-FEW) Urine Opiates Screen Neg (NEG) Urine Methadone Screen Neg (NEG) Urine Barbiturates Neg (NEG) Urine Phencyclidine Screen Neg (NEG) Urine Amphetamine/Methamphetamine Neg (NEG) Urine Benzodiazepines Screen Neg (NEG) Urine Cocaine Screen Neg (NEG) Urine Cannabinoids Screen Neg (NEG) Urine Ethyl Alcohol Neg (NEG) Laboratory Tests Test 04/08/19 14:01 Urine Collection Type Unknown Urine Color Yellow Urine Clarity Clear Urine pH 7.0 Urine Specific [place] 1.010 Urine Protein Negative mg/dL (NEG-TRACE) Urine Glucose (UA) Negative mg/dL (NEG) Urine Ketones (Stick) Negative mg/dL (NEG) Urine Blood Negative (NEG) Urine Nitrite Negative (NEG) Urine Bilirubin Negative (NEG) Urine Urobilinogen Dipstick 0.2 mg/dL (0.2 mg/dL) Urine Leukocyte Esterase Negative (NEG) Urine RBC 0 /HPF (0-2) Urine WBC 0 /HPF (0-4) Urine Squamous Epithelial Cells Few /LPF Urine Bacteria 0 /HPF (0-FEW) Urine Opiates Screen Neg (NEG) Urine Methadone Screen Neg (NEG) Urine Barbiturates Neg (NEG) Urine Phencyclidine Screen Neg (NEG) Urine Amphetamine/Methamphetamine Neg (NEG) Urine Benzodiazepines Screen Neg (NEG) Urine Cocaine Screen Neg (NEG) Urine Cannabinoids Screen Neg (NEG) Urine Ethyl Alcohol Neg (NEG) Medications Current Medications Meclizine HCl (Antivert) 25 mg 1X ONCE PO Last administered on 04/07/19at 18:35; Start 04/07/19 at 18:45; Stop 04/07/19 at 18:46; Status DC Sodium Chloride 1,000 ml @ 1,000 mls/hr Q1H IV Last administered on 04/07/19at 18:36; Start 04/07/19 at 17:51; Stop 04/07/19 at 18:50; Status DC Diltiazem HCl (Cardizem Iv Push) 10 mg 1X ONCE IVP Last administered on 04/07/19at 18:56; Start 04/07/19 at 19:15; Stop 04/07/19 at 19:16; Status DC Diltiazem HCl 125 mg/Dextrose 125 ml @ 5 mls/hr 1X ONCE IV Last administered on 04/07/19at 20:28; Start 04/07/19 at 20:30; Stop 04/08/19 at 21:29; Status DC Ondansetron HCl (Zofran) 4 mg PRN Q8HRS PRN IV NAUSEA/VOMITING; Start 04/07/19 at 20:30; Stop 04/08/19 at 20:29; Status DC Fentanyl Citrate (Fentanyl 2ml Vial) 50 mcg PRN Q1HR PRN IV PAIN; Start 04/07/19 at 20:30; Stop 04/08/19 at 20:29; Status DC Acetaminophen (Tylenol) 650 mg PRN Q4HRS PRN PO FEVER; Start 04/07/19 at 20:30; Stop 04/08/19 at 20:29; Status DC Apixaban (Eliquis) 5 mg BID PO Last administered on 04/09/19at 08:16; Start 04/08/19 at 11:00 Sotalol HCl (Betapace) 80 mg BID PO ; Start 04/08/19 at 11:00; Status Cancel Info (Anti-Coagulation Monitoring By Pharmacy) 1 each PRN DAILY PRN MC SEE COMMENTS Last administered on 04/09/19at 08:48; Start 04/08/19 at 10:30 Metoprolol Tartrate (Lopressor) 25 mg BID PO ; Start 04/08/19 at 11:00; Stop 04/08/19 at 14:58; Status DC Amiodarone HCl 150 mg/Dextrose 103 ml @ 600 mls/hr 1X ONCE IV Last administered on 04/08/19at 11:20; Start 04/08/19 at 10:45; Stop 04/08/19 at 11:08; Status DC Amiodarone HCl 900 mg/Dextrose 518 ml @ 0 mls/hr CONT PRN IV SEE I/O RECORD; Start 04/08/19 at 10:45; Stop 04/09/19 at 10:44; Status DC Metoprolol Tartrate (Lopressor) 12.5 mg BID PO Last administered on 04/08/19at 20:54; Start 04/08/19 at 21:00; Stop 04/09/19 at 07:57; Status DC Metoprolol Tartrate (Lopressor) 25 mg Q6HRS PO Last administered on 04/09/19at 08:16; Start 04/09/19 at 08:30 Amiodarone HCl (Cordarone) 400 mg BID PO Last administered on 04/09/19at 08:17; Start 04/09/19 at 09:00 Digoxin (Lanoxin) 500 mcg 1X ONCE IV Last administered on 04/09/19at 08:21; Start 04/09/19 at 08:15; Stop 04/09/19 at 08:17; Status DC Polyethylene Glycol (miraLAX PACKET) 17 gm PRN BID PRN PO CONSTIPATION; Start 04/09/19 at 10:45 Active Scripts Active Reported Eliquis (Apixaban) 5 Mg Tablet 5 Mg PO BID Vitals/I & O Vital Sign - Last 24 Hours 04/08/19 04/08/19 04/08/19 04/08/19 15:27 19:37 19:37 20:54 Temp 98.3 98.1 98.3 98.1 Pulse 99 123 123 Resp 18 20 B/P (MAP) 98/72 (81) 118/89 (99) 118/89 Pulse Ox 97 99 O2 Delivery Room Air Room Air Room Air 04/08/19 04/09/19 04/09/19 04/09/19 23:16 03:30 07:00 08:00 Temp 97.6 97.3 97.7 97.6 97.3 97.7 Pulse 87 97 107 Resp 20 20 18 B/P (MAP) 103/78 (86) 111/72 (85) 118/81 (93) Pulse Ox 96 95 94 O2 Delivery Room Air Room Air Room Air Room Air 04/09/19 04/09/19 04/09/19 08:16 08:17 08:21 Pulse 116 107 132 B/P (MAP) 118/81 118/81 Intake and Output 04/08/19 04/08/19 04/09/19 15:00 23:00 07:00 Intake Total 600 ml Output Total 1000 ml 650 ml Balance -400 ml -650 ml SHARLENE FERGUSON MD Apr 09, 2019 11:45
[2019-04-09 15:00] VITALS: BP 124/77
[2019-04-09 19:00] VITALS: BP 108/66
--- NOTE | 2019-04-09 19:53 | NUR ---
Assessment completed vss poc explained pt denies pain will resume care and continue to monitor pt.Pt up ad jared and ambulating in boogie.
[2019-04-09] MEDS ORDERED: ZOLPIDEM 5 MG TABLET. PO PRN (23:15)
[2019-04-09 23:40] VITALS: BP 138/70
[2019-04-10] MEDS: METOPROLOL TART IMMED RELEASE 25 MG TABLET. PO SCH ×2 (06:03→09:22)
[2019-04-10 07:45] VITALS: BP 111/87
[2019-04-10] MEDS: ANTI-COAG MONITOR BY PHARMACY. MC PRN (07:51)
[2019-04-10 09:22] VITALS: BP 111/87
[2019-04-10] MEDS: AMIODARONE HCL 200 MG TABLET. PO SCH (09:22)
[2019-04-10] MEDS: APIXABAN 5 MG TABLET. PO SCH (09:22)
[2019-04-10] MEDS ORDERED: AMIO200T4 PO (09:42)
[2019-04-10] MEDS ORDERED: METO-247 PO (09:42)
--- NOTE | 2019-04-10 11:45 | NUR ---
Discharge Note: JAVI DALY Discharge instructions and discharge home medications reviewed with Patient and a copy given. All questions have been answered and understanding verbalized. The following instructions and handouts were given: wirtten prescriptions, discharge instructions, follow up appointment, afib education Discontinued lines and drains: IV discontinued, dressing clean, dry and intact. Patient discharged to home with via ambulation
--- NOTE | 2019-04-10 12:22 | PDOC3 ---
Discharge Summary Visit Information Date of Admission: Apr 07, 2019 Date of Discharge: Apr 10, 2019 Final Diagnosis atrial fib, acute diastolic CHF rapid ventricular response, BMI 30 Problems Medical Problems: (1) Atrial fibrillation with RVR Status: Acute Brief Hospital Course Allergies Allergies Coded Allergies Type Severity Reaction Last Updated Verified No Known Drug Allergies 04/07/19 No Vital Signs Vital Signs Date Time Temp Pulse Resp B/P (MAP) Pulse Ox O2 Delivery O2 Flow Rate FiO2 04/10/19 09:22 93 04/10/19 09:22 111/87 04/10/19 08:00 Room Air 04/10/19 07:45 97.5 12 97 97.5 Lab Results Laboratory Tests Test 04/08/19 14:01 Urine Collection Type Unknown Urine Color Yellow Urine Clarity Clear Urine pH 7.0 Urine Specific [place] 1.010 Urine Protein Negative mg/dL (NEG-TRACE) Urine Glucose (UA) Negative mg/dL (NEG) Urine Ketones (Stick) Negative mg/dL (NEG) Urine Blood Negative (NEG) Urine Nitrite Negative (NEG) Urine Bilirubin Negative (NEG) Urine Urobilinogen Dipstick 0.2 mg/dL (0.2 mg/dL) Urine Leukocyte Esterase Negative (NEG) Urine RBC 0 /HPF (0-2) Urine WBC 0 /HPF (0-4) Urine Squamous Epithelial Cells Few /LPF Urine Bacteria 0 /HPF (0-FEW) Urine Opiates Screen Neg (NEG) Urine Methadone Screen Neg (NEG) Urine Barbiturates Neg (NEG) Urine Phencyclidine Screen Neg (NEG) Urine Amphetamine/Methamphetamine Neg (NEG) Urine Benzodiazepines Screen Neg (NEG) Urine Cocaine Screen Neg (NEG) Urine Cannabinoids Screen Neg (NEG) Urine Ethyl Alcohol Neg (NEG) Brief Hospital Course Mr. Maldonado is a 53 old male, prev. healthy until a month ago, admit to [facility], acute diastolic CHF from aFIB RVR, he has DC cardioversion x3, had been oK, admit here for same, consider failure of Sotalol amio gtt here, good results CV consult OK with DC, amio, toprol xl100, cont the eliquis he has been on almost a month, DC sotalol Discharge Information Condition at Discharge: Improved Follow Up: Weeks Disposition/Orders: D/C to Home Scheduled Amiodarone Hcl (Amiodarone Hcl) 200 Mg Tablet, 1 TAB PO DAILY for afib, #30 Ref 1 Prescribed by: SHARLENE FERGUSON on 04/10/19941 Apixaban (Eliquis) 5 Mg Tablet, 5 MG PO BID for afib, (Reported) Entered as Reported by: Etienne Mckeon on 04/08/19 0026 Last Taken: Unknown Dose on 04/07/19 2100 Last Action: Continued on 04/08/19 1018 by SHARLENE FERGUSON Metoprolol Succinate (Metoprolol Succinate ( Xl )) 100 Mg Tab.er.24h, 1 TAB PO DAILY for atrial fib, #30 Ref 5 Prescribed by: SHARLENE FERGUSON on 04/10/1942 Patient Instructions Patient Instructions < 30 min f.u CV here, consider EP consult as outpatient SHARLENE FERGUSON MD Apr 10, 2019 12:22
== END 2019-04-10 11:47 | disposition home or self-care (01) | DRG 308 ==
LOC: ER 16:03 → 2 NORTH 20:14
PROVIDERS: ADMIT Internal Medicine; ATTEND Internal Medicine
DX: I48.0 Paroxysmal atrial fibrillation (principal); I50.31 Acute diastolic (congestive) heart failure; K21.9 Gastro-esophageal reflux disease without esophagitis; M19.90 Unspecified osteoarthritis, unspecified site; G47.33 Obstructive sleep apnea (adult) (pediatric); E66.9 Obesity, unspecified; Z79.899 Other long term (current) drug therapy; Z82.49 Family history of ischemic heart disease and other diseases of the circulatory system; Z68.30 Body mass index [BMI] 30.0-30.9, adult
CPT/HCPCS: 36415; 70450; 71045; 80053; 80061; 80307; 81001; 84443; 84484; 85025; 85610; 93005; 93306; 96361; 96365; 96376; J0282; J1160; J3490; J7030; J8597; 99285-25; G0378

== ENCOUNTER 2019-04-26 13:30 | Day surgery (SDC) | payer BC ==
[~2019-04-26 13:30] MED LIST: AMIO200T4 PO; APIX5TAB PO; HYDROmorphone 2 MG/ML VIAL IV PRN; IV RINGERS,LACTATED 1000ML 1,000 ML IV SCH; LIDOCAINE 1% PF 2 ML VIAL. ID PRN; METO-247 PO; MORPHINE SULFATE 2 MG/ML VIAL. IV PRN; ONDANSETRON PF 4 MG/2 ML VIAL. IV PRN; PROCHLORPERAZINE 10 MG/2 ML VIAL. IV PRN; SOTA80TA48 PO; fentaNYL PF VIAL 100 MCG/2 ML VIAL IV PRN
--- NOTE | 2019-04-26 14:22 | EKG ---
[facility] [address] [place] [address] Test Date: 2019-04-26 Test Time: 14:16:15 Pat Name: JAVI DALY Department: Room: Gender: M Er Rn: MECCA : 1965 Requested By: CHEYENNE BRENNAN Order Number: [id number] Reading MD: Measurements Intervals [place] Rate: 108 P: AL: QRS: 51 QRSD: 106 T: 33 QT: 360 QTc: 486 Interpretive Statements IRREGULAR RHYTHM, NO P-WAVE FOUND INCOMPLETE RIGHT BUNDLE BRANCH BLOCK NO SPECIFIC ECG ABNORMALITIES RI6.01 Compared to ECG 04/08/2019 13:41:52 Incomplete right bundle-branch block now present Atrial fibrillation no longer present
[2019-04-26 14:54] LABS: HEMATOCRIT 42.4 % (39.0-53.0); HEMOGLOBIN 14.3 g/dL (13.0-17.5); RED BLOOD COUNT 4.56 x10^6/uL (4.30-5.70); RED CELL DISTRIBUTION WIDTH 15.1 % (11.5-14.5); WHITE BLOOD COUNT 7.7 x10^3/uL (4.0-11.0)
[2019-04-26 15:03] LABS: CALCIUM 9.2 mg/dL (8.5-10.1); CREATININE 0.9 mg/dL (0.7-1.3); GFR 88.3; POTASSIUM 4.9 mmol/L (3.5-5.1)
[2019-04-26 15:05] LABS: PROTHROMBIN TIME PATIENT 14.9 SEC (11.7-14.0)
[2019-04-26] MEDS ORDERED: LIDOCAINE 2% PF 5 ML VIAL. ONE (16:16)
[2019-04-26] MEDS ORDERED: PROPOFOL 20 ML IV ONE (16:16)
--- NOTE | 2019-04-26 16:49 | EKG ---
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
[2019-04-26 17:00] VITALS: BP 105/65
--- NOTE | 2019-04-28 17:17 | PDOC4 ---
PROCEDURE Procedure Indication: Atrial fibrillation Consent: The patient provided verbal/written consent for this procedure. Pre-Medication: [None] - See anesthesia notes for details on medications. Procedure: The patient was placed in the supine position and the chest area was exposed. The cardioversion pads were applied in the standard manner and configuration. The defibrillator was set on the [DEFIB MODE:] mode and charged to [200:] joules. A synchronized charge was then delivered which resulted in [SR]. The patient tolerated the procedure well. Complications: none. [] Patient advised to f/u with Dr. Manjarrez and continue amiodarone/eliquis and metoprolol. Late entry for 04/26/2019 DUC MELISSA MD Apr 28, 2019 17:17
== END 2019-04-26 17:30 | disposition home or self-care (01) ==
LOC: SURG 13:30
PROVIDERS: ATTEND Internal Medicine Cardiovascular Disease
DX: I48.91 Unspecified atrial fibrillation (principal); G47.33 Obstructive sleep apnea (adult) (pediatric); I11.9 Hypertensive heart disease without heart failure; K21.9 Gastro-esophageal reflux disease without esophagitis; E66.9 Obesity, unspecified; Z68.30 Body mass index [BMI] 30.0-30.9, adult; Z72.89 Other problems related to lifestyle; Z87.891 Personal history of nicotine dependence; Z98.890 Other specified postprocedural states
CPT/HCPCS: 36415; 80048; 85027; 85610; 85730; 92960; 93005; J2001; J2704

== ENCOUNTER 2019-07-13 08:07 | Emergency (ER) | payer BC ==
[~2019-07-13] VITALS: Ht 208.3 cm; Wt 127.0 kg
[~2019-07-13 08:07] MED LIST changes: -HYDROmorphone 2 MG/ML VIAL IV PRN; -IV RINGERS,LACTATED 1000ML 1,000 ML IV SCH; -LIDOCAINE 1% PF 2 ML VIAL. ID PRN; -MORPHINE SULFATE 2 MG/ML VIAL. IV PRN; -ONDANSETRON PF 4 MG/2 ML VIAL. IV PRN; -PROCHLORPERAZINE 10 MG/2 ML VIAL. IV PRN; -fentaNYL PF VIAL 100 MCG/2 ML VIAL IV PRN
[2019-07-13] MEDS ORDERED: IV NORMAL SALINE 1000ML BAG 1,000 ML IV ONE (08:30)
--- NOTE | 2019-07-13 08:35 | PHYS DOC ---
Past Medical History Past Medical History: A-Fib, GERD, Other Additional Past Medical Histor: avascular necrosis, heart murmur as ped Past Surgical History: Tonsillectomy, Other Additional Past Surgical Histo: back, left wrist Additional Information: Non smoker Alcohol Use: Occasionally Drug Use: None Adult General Chief Complaint Chief Complaint: DIZZY/LIGHT HEADED HPI HPI Patient is a 54 year old M with a history of A fib that presents to the ED for dizziness and light headedness. Pt reports that he has been experiencing near daily episodes of dizziness and light headedness since February, and was subsequently diagnosed with A fib. Pt states today it was worse then usual. Pt was able to drive himself to and from work today. Pt explains that he feels like he is going to pass out when he tries to walk around and feels unsteady on his feet. Pt denies SOB, CP, n/v/d, abdominal pain, PIPER, LOC. Pt states he is on Eliquis for his Afib. Review of Systems Review of Systems Constitutional: Denies fever or chills Eyes: Denies redness or eye pain HENT: Denies nasal congestion or sore throat Respiratory: Denies cough or shortness of breath Cardiovascular: Denies chest pain or palpitations GI: Denies abdominal pain, nausea, or vomiting : Denies dysuria or hematuria Musculoskeletal: Denies back pain or joint pain Integument: Denies rash or skin lesions Neurologic: Denies headache, focal weakness or sensory changes, reports dizziness and lightheadedness Complete systems were reviewed and found to be within normal limits, except as documented in this note. Current Medications Current Medications Current Medications Medications (Trade) Dose Ordered Sig/Lindsey Start Time Stop Time Status Last Admin Dose Admin Sodium Chloride 1,000 ml @ 1,000 mls/hr 1X ONCE 07/13/19 08:30 07/13/19 09:29 DC 07/13/19 09:30 1,000 MLS/HR Allergies Allergies Allergies Coded Allergies Type Severity Reaction Last Updated Verified No Known Drug Allergies 04/22/19 No Physical Exam Physical Exam Constitutional: Well developed, well nourished, no acute distress, non-toxic appearance HENT: Normocephalic, atraumatic, oropharynx moist Eyes: PERRL, EOMI, conjunctiva normal, no discharge, no nystagmus Neck: Normal range of motion, no tenderness, supple Cardiovascular: Heart rate normal, regular rhythm Lungs & Thorax: Bilateral breath sounds clear to auscultation, no wheezing Abdomen: Soft, no tenderness Skin: Warm, dry, no erythema, no rash Back: No tenderness, no CVA tenderness Extremities: No tenderness, ROM intact, no edema Neurologic: Alert and oriented X 3, normal motor function, normal sensory function, no focal deficits noted Psychologic: Affect normal, judgement normal, mood normal Current Patient Data Vital Signs Vital Signs Date Time Temp Pulse Resp B/P (MAP) Pulse Ox O2 Delivery O2 Flow Rate FiO2 07/13/19 10:06 105 99 07/13/19 08:10 97.7 17 138/81 (100) Room Air 97.7 Lab Values Laboratory Tests Test 07/13/19 08:35 White Blood Count 6.3 x10^3/uL (4.0-11.0) Red Blood Count 4.31 x10^6/uL (4.30-5.70) Hemoglobin 13.9 g/dL (13.0-17.5) Hematocrit 41.1 % (39.0-53.0) Mean Corpuscular Volume 95 fL (79-100) Mean Corpuscular Hemoglobin 32 pg (25-35) Mean Corpuscular Hemoglobin Concent 34 g/dL (31-37) Red Cell Distribution Width 14.3 % (11.5-14.5) Platelet Count 251 x10^3/uL (140-400) Neutrophils (%) (Auto) 66 % (31-73) Lymphocytes (%) (Auto) 23 % (24-48) L Monocytes (%) (Auto) 7 % (0-9) Eosinophils (%) (Auto) 4 % (0-3) H Basophils (%) (Auto) 1 % (0-3) Neutrophils # (Auto) 4.1 x10^3/uL (1.8-7.7) Lymphocytes # (Auto) 1.4 x10^3/uL (1.0-4.8) Monocytes # (Auto) 0.4 x10^3/uL (0.0-1.1) Eosinophils # (Auto) 0.2 x10^3/uL (0.0-0.7) Basophils # (Auto) 0.1 x10^3/uL (0.0-0.2) Prothrombin Time 15.7 SEC (11.7-14.0) H Prothrombin Time INR 1.3 (0.8-1.1) H Activated Partial Thromboplast Time 37 SEC (24-38) Sodium Level 139 mmol/L (136-145) Potassium Level 4.3 mmol/L (3.5-5.1) Chloride Level 104 mmol/L (98-107) Carbon Dioxide Level 29 mmol/L (21-32) Anion Gap 6 (6-14) Blood Urea Nitrogen 17 mg/dL (8-26) Creatinine 0.9 mg/dL (0.7-1.3) Estimated GFR (Cockcroft-Gault) 87.9 BUN/Creatinine Ratio 19 (6-20) Glucose Level 85 mg/dL (70-99) Calcium Level 9.3 mg/dL (8.5-10.1) Magnesium Level 2.1 mg/dL (1.8-2.4) Total Bilirubin 0.4 mg/dL (0.2-1.0) Aspartate Amino Transferase (AST) 17 U/L (15-37) Alanine Aminotransferase (ALT) 21 U/L (16-63) Alkaline Phosphatase 86 U/L (46-116) Creatine Kinase 138 U/L (39-308) Creatine Kinase MB (Mass) 1.8 ng/mL (0.0-3.6) Creatine Kinase MB Relative Index 1.3 % (0-4) Troponin I Quantitative < 0.017 ng/mL (0.000-0.055) Total Protein 7.0 g/dL (6.4-8.2) Albumin 3.7 g/dL (3.4-5.0) Albumin/Globulin Ratio 1.1 (1.0-1.7) Laboratory Tests 07/13/19 08:35 Laboratory Tests 07/13/19 08:35 EKG EKG [] Interpretation Time: @0818. Atrial fibrillation at 108bpm. No ST elevation, incomplete RBBB, baseline artifact noted in II-III Radiology/Procedures Radiology/Procedures [] Course & Med Decision Making Course & Med Decision Making Pertinent Lab studies reviewed. (See chart for details) Patient with history of A. fib presents with lightheadedness. Patient has recent diagnosis of atrial fibrillation with an ablation scheduled on Thursday. Patient endorses near daily lightheadedness since his atrial fibrillation diagnosis she denies loss of consciousness, nausea, vomiting. Labs unremarkable and patient is neurologically intact in the emergency department. She is currently anticoagulated for his A. fib. Patient received normal saline in ED, will write off work until Thursday. Patient stable for discharge with outpatient follow-up with PCP. Discussed findings and plan with patient and family, who acknowledge understanding and agreement. Dragon Disclaimer Dragon Disclaimer This electronic medical record was generated, in whole or in part, using a voice recognition dictation system. Departure Departure Impression: Primary Impression: Near syncope Additional Impression: Atrial fibrillation Disposition: HOME, SELF-CARE Condition: STABLE Referrals: PANTERA VILLALBA DO (PCP) CHEYENNE BRENNAN MD Patient Instructions: Near-Syncope, [id number] Additional Instructions: Please take it easy for next few days. Increase fluid hydration. Follow closely with your previously scheduled cardiac ablation. Problem Qualifiers Additional Impression: Atrial fibrillation Atrial fibrillation type: unspecified Qualified Codes: I48.91 - Unspecified atrial fibrillation IDANIA LIZARRAGA DO Jul 13, 2019 08:35
[2019-07-13 08:48] LABS: BASO # 0.1 x10^3/uL (0.0-0.2); BASO % 1 % (0-3); EOS # 0.2 x10^3/uL (0.0-0.7); EOS % 4 % (0-3); HEMATOCRIT 41.1 % (39.0-53.0); HEMOGLOBIN 13.9 g/dL (13.0-17.5); LYMPH # 1.4 x10^3/uL (1.0-4.8); LYMPH % 23 % (24-48); MEAN CORPUSCULAR HEMOGLOBIN 32 pg (25-35); MEAN CORPUSCULAR HGB CONC 34 g/dL (31-37); MEAN CORPUSCULAR VOLUME 95 fL (79-100); MONO # 0.4 x10^3/uL (0.0-1.1); MONO % 7 % (0-9); NEUT # 4.1 x10^3/uL (1.8-7.7); NEUT % 66 % (31-73); PLATELET COUNT 251 x10^3/uL (140-400); RED BLOOD COUNT 4.31 x10^6/uL (4.30-5.70); RED CELL DISTRIBUTION WIDTH 14.3 % (11.5-14.5); WHITE BLOOD COUNT 6.3 x10^3/uL (4.0-11.0)
[2019-07-13 08:58] LABS: CALCIUM 9.3 mg/dL (8.5-10.1); CREATININE 0.9 mg/dL (0.7-1.3); GFR 87.9; POTASSIUM 4.3 mmol/L (3.5-5.1)
[2019-07-13 08:59] LABS: PROTHROMBIN TIME PATIENT 15.7 SEC (11.7-14.0)
[2019-07-13 09:08] LABS: ALBUMIN 3.7 g/dL (3.4-5.0); ALBUMIN/GLOBULIN RATIO 1.1 (1.0-1.7); MAGNESIUM 2.1 mg/dL (1.8-2.4); TOTAL BILIRUBIN 0.4 mg/dL (0.2-1.0)
--- NOTE | 2019-07-13 09:13 | EKG ---
[facility] [address] [place] [address] Test Date: 2019-07-13 Test Time: 08:18:05 Pat Name: JAVI SIMEON Department: Room: Gender: M [employer]: : 1965 Requested By: IDANIA LIZARRAGA Order Number: [id number] Reading MD: Measurements Intervals [place] Rate: 108 P: 90 AK: 174 QRS: 53 QRSD: 112 T: 42 QT: 374 QTc: 505 Interpretive Statements SINUS TACHYCARDIA INCOMPLETE RIGHT BUNDLE BRANCH BLOCK QRS(T) CONTOUR ABNORMALITY CONSIDER ANTEROLATERAL MYOCARDIAL DAMAGE POSSIBLY ABNORMAL ECG RI6.01 No previous ECG available for comparison
[2019-07-13 10:06] VITALS: BP 127/77
== END 2019-07-13 10:13 | disposition home or self-care (01) ==
LOC: ER 08:07
DX: I48.91 Unspecified atrial fibrillation (principal); R55 Syncope and collapse; R42 Dizziness and giddiness; K21.9 Gastro-esophageal reflux disease without esophagitis; Z90.89 Acquired absence of other organs; Z98.890 Other specified postprocedural states
CPT/HCPCS: 36415; 80053; 82553; 83735; 84484; 85025; 85610; 85730; 93005; 96360; 99285; J7030

== ENCOUNTER → 2019-09-13 | Outpatient (CLI) | payer BC ==
--- NOTE | 2019-09-13 11:03 | CARD ---
MR#: [id number] Date of Study: 09/13/2019 Ordering Physician: CHEYENNE BRENNAN, Referring Physician: CHEYENNE BRENNAN, Tech: Marian Badillo APPROVED REPORT EXAM: Two-dimensional and M-mode echocardiogram with Doppler and color Doppler. Other Information Quality : AverageHR: 76bpm Technically limited study due to body habitus. INDICATION Atrial Fibrillation RISK FACTORS Hypertension 2D DIMENSIONS Left Atrium(2D)3.9 (1.6-4.0cm)IVSd1.2 (0.7-1.1cm) Aortic Root(2D)3.4 (2.0-3.7cm)LVDd5.3 (3.9-5.9cm) LVOT Diameter2.2 (1.8-2.4cm)PWd1.1 (0.7-1.1cm) LVDs4.7 (2.5-4.0cm)FS (%) 10.9 % SV31.5 mlLVEF(%)23.6 (>50%) Aortic Valve AoV Peak Rakan.139.4cm/sAoV VTI24.7cm AO Peak GR.7.8mmHgLVOT Peak Rakan.95.7cm/s LVOT VTI 18.23cmAO Mean GR.4mmHg RUBI (VMAX)1.05vx9ZNN (VTI)2.85cm2 Mitral Valve MV E Mfuikjhb88.9cm/sMV DECEL [id number] MV A Vwyguito63.4cm/sMV E Mean Gr.1mmHg MV CVR26ztJ/A Ratio1.1 MVA (PHT)4.95cm2 TDI E/Lateral E'4.8E/Medial E'5.1 Pulmonary Valve PV Peak Lfwlmjvo982.4cm/sPV Peak Grad.4mmHg Pulmonary Vein S1 Yfjkhjjr67.6cm/sD2 Tvewdpkg75.7cm/s LEFT VENTRICLE The left ventricle is normal size. There is mild concentric left ventricular hypertrophy. The systoli c function is mildly to moderately impaired. The Ejection Fraction is 40-45%. Wall motion consistent with conducton abnormality. Mild global hypokinesis. Transmitral Doppler flow pattern is Grade I-abno rmal relaxation pattern. RIGHT VENTRICLE The right ventricle is borderline dilated. There is normal right ventricular wall thickness. RV Systo lic function is borderline reduced. ATRIA The left atrium size is normal. The right atrium is mildly dilated. The interatrial septum is intact with no evidence for an atrial septal defect or patent foramen ovale as noted on 2-D or Doppler imagi ng. AORTIC VALVE The aortic valve is thickened and calcified but opens well. Doppler and Color Flow revealed no signif icant aortic regurgitation. There is no significant aortic valvular stenosis. MITRAL VALVE The mitral valve is normal in structure and function. There is no evidence of mitral valve prolapse. There is no mitral valve stenosis. Doppler and Color Flow revealed no mitral valve regurgitation note d. TRICUSPID VALVE The tricuspid valve is normal in structure and function. Doppler and Color Flow revealed no tricuspid valve regurgitation noted. There is no tricuspid valve stenosis. PULMONIC VALVE The pulmonic valve is not well visualized. Doppler and Color Flow revealed no pulmonic valvular regur gitation. There is no pulmonic valvular stenosis. GREAT VESSELS The aortic root is normal in size. The IVC is normal in size and collapses >50% with inspiration. PERICARDIAL EFFUSION There is no evidence of significant pericardial effusion. Critical Notification Critical Value: No <Conclusion> The systolic function is mildly to moderately impaired. The Ejection Fraction is 40-45%. Wall motion consistent with conducton abnormality. Mild global hypokinesis. Signed by : Atul Li, Electronically Approved : 09/13/2019 11:03:12
== END | disposition home or self-care (01) ==
LOC: ECHO 09:42
PROVIDERS: ATTEND Internal Medicine Cardiovascular Disease
DX: I35.8 Other nonrheumatic aortic valve disorders (principal); I51.7 Cardiomegaly; I48.91 Unspecified atrial fibrillation
CPT/HCPCS: 93306

== ENCOUNTER → 2021-02-07 | Outpatient (CLI) | payer BC ==
[~2021-02-07] MED LIST changes: -AMIO200T4 PO; +AMIO200T6 PO
--- NOTE | 2021-02-07 17:24 | CARD ---
MR#: [id number] Date of Study: 02/07/2021 Ordering Physician: CHEYENNE BRENNAN, Referring Physician: Fabiana GÓMEZ: Charles Rodriguez [facility] APPROVED REPORT EXAM: Two-dimensional and M-mode echocardiogram with Doppler and color Doppler. Other Information Quality : AverageHR: 76bpm Rhythm : NSR INDICATION Atrial Fibrillation Surgery/Intervention Previous Afib ablation RISK FACTORS Smoking 2D DIMENSIONS Left Atrium(2D)3.4 (1.6-4.0cm)IVSd1.0 (0.7-1.1cm) Aortic Root(2D)3.5 (2.0-3.7cm)LVDd5.2 (3.9-5.9cm) LVOT Diameter2.5 (1.8-2.4cm)PWd0.9 (0.7-1.1cm) LVDs3.3 (2.5-4.0cm)FS (%) 36.5 % SV83.8 mlLVEF(%)65.9 (>50%) Aortic Valve AoV Peak Rakan.162.0cm/sAoV VTI35.3cm AO Peak GR.10.5mmHgLVOT Peak Rakan.108.2cm/s AO Mean GR.6mmHgAVA (VMAX)3.36cm2 Mitral Valve MV E Gcmtktav73.2cm/sMV E Peak Gr.2mmHg MV DECEL [id number] A Auceypjb96.8cm/s MV E Mean Gr.1mmHgE/A Ratio0.9 Pulmonary Valve PV Peak Eeqtikvf543.2cm/s Tricuspid Valve TR P. Wdcflcef103kh/sTR Peak Gr.16mmHg Pulmonary Vein S1 Zcxpmvit89.9cm/sD2 Ocavakjz45.5cm/s LEFT VENTRICLE The left ventricle is normal size. There is normal left ventricular wall thickness. The left ventricu lar systolic function is normal and the ejection fraction is within normal range. Left ventricular ej ection fraction is 50-55%. There is normal LV segmental wall motion. Transmitral Doppler flow pattern is Grade I-abnormal relaxation pattern. No left ventricle thrombus noted on this study. There is no ventricular septal defect visualized. There is no left ventricular aneurysm. There is no mass noted i n the left ventricle. RIGHT VENTRICLE The right ventricle is normal size. There is normal right ventricular wall thickness. The right ventr icular systolic function is normal. ATRIA The left atrium is mildly dilated. The right atrium is mildly dilated. The interatrial septum is inta ct with no evidence for an atrial septal defect or patent foramen ovale as noted on 2-D or Doppler im aging. AORTIC VALVE The aortic valve is normal in structure and function. Doppler and Color Flow revealed no significant aortic regurgitation. There is no significant aortic valvular stenosis. There is no aortic valvular v egetation. MITRAL VALVE The mitral valve is normal in structure and function. There is no evidence of mitral valve prolapse. There is no mitral valve stenosis. Doppler and Color-flow revealed trace to mild mitral regurgitation . TRICUSPID VALVE The tricuspid valve is normal in structure and function. Doppler and Color Flow revealed trace tricus pid regurgitation. There is no tricuspid valve prolapse or vegetation. There is no tricuspid valve st enosis. PULMONIC VALVE The pulmonary valve is normal in structure and function. Doppler and Color Flow revealed no pulmonic valvular regurgitation. There is no pulmonic valvular stenosis. GREAT VESSELS The aortic root is normal in size. The ascending aorta is normal in size. The pulmonary artery is nor mal. The IVC is normal in size and collapses >50% with inspiration. PERICARDIAL EFFUSION There is no pleural effusion. There is no evidence of significant pericardial effusion. Critical Notification Critical Value: No <Conclusion> The left ventricle is normal size. The left ventricular systolic function is normal and the ejection fraction is within normal range. Left ventricular ejection fraction is 50-55%. Doppler and Color Flow revealed no significant aortic regurgitation. There is no significant aortic valvular stenosis. Doppler and Color-flow revealed trace to mild mitral regurgitation. Doppler and Color Flow revealed trace tricuspid regurgitation. Signed by : Gamaliel La MD Electronically Approved : 02/07/2021 17:24:11
== END ==
LOC: ECHO 07:47
PROVIDERS: ATTEND Internal Medicine Cardiovascular Disease
DX: I34.0 Nonrheumatic mitral (valve) insufficiency (principal); I48.91 Unspecified atrial fibrillation
CPT/HCPCS: 93306